=== PATIENT | male | born 1975 | race Caucasian/White ===

== ENCOUNTER 2016-05-29 19:22 | Emergency (ER) | payer BC ==
[~2016-05-29 19:22] MED LIST: ATARAX25 MG PO; COMPAZINE10 MG PO; DEPAKOTE D250 MG/TAB PO; DEPAKOTE250 MG PO; HALDOL5 MG/TAB PO; HYDROCODON-ACE1 EAC7 PO; INVEGA SUS156 MG/1 M IM; INVEGA SUS234 MG/1.5 IM; MOTRIN600 MG PO; NEURONTIN100 MG PO; NEURONTIN300 M1 PO; NORCO 5/325 TAB1 TAB PO; OMEPRAZOLE40 M2 PO; TRAZODONE HCL50 MG PO; TRAZODONE PO; ZOFRAN4 M1 PO
== END 2016-05-29 21:15 ==
LOC: EDMED 19:22
DX: B34.9 Viral infection, unspecified (principal); F17.210 Nicotine dependence, cigarettes, uncomplicated; F31.9 Bipolar disorder, unspecified; F20.9 Schizophrenia, unspecified; F41.9 Anxiety disorder, unspecified

== ENCOUNTER 2016-06-14 10:52 | Emergency (ER) | payer BC ==
[2016-06-14] MEDS ORDERED: NORCO 5-325 TA1 EACH PO (12:30)
== END 2016-06-14 12:49 ==
LOC: EDMED 10:52
PROC: 2W3RXYZ Immobilization of Left Lower Leg using Other Device (ICD-10-PCS; principal; 2016-06-14)
DX: S50.02XA Contusion of left elbow, initial encounter (principal); M25.462 Effusion, left knee; Z79.899 Other long term (current) drug therapy; F17.200 Nicotine dependence, unspecified, uncomplicated; V18.4XXA Pedal cycle driver injured in noncollision transport accident in traffic accident, initial encounter; Y93.55 Activity, bike riding; Y92.410 Unspecified street and highway as the place of occurrence of the external cause; Y99.8 Other external cause status; F31.9 Bipolar disorder, unspecified

== ENCOUNTER 2016-08-06 00:50 | Emergency (ER) | payer SELFPAY ==
[~2016-08-06 00:50] MED LIST changes: +NORCO 5-325 TA1 EACH PO
[2016-08-06] MEDS ORDERED: DEPAKOTE500 M1 PO (02:00)
[2016-08-06] MEDS ORDERED: VISTARIL25 M1 PO (02:00)
[2016-08-06] MEDS ORDERED: VITAMIN D31000 UNI3 PO (02:01)
== END 2016-08-06 02:27 ==
LOC: EDMED 00:50
DX: S90.32XA Contusion of left foot, initial encounter (principal); F31.9 Bipolar disorder, unspecified; F20.9 Schizophrenia, unspecified; F17.200 Nicotine dependence, unspecified, uncomplicated; Z79.899 Other long term (current) drug therapy; W22.8XXA Striking against or struck by other objects, initial encounter